=== PATIENT | male | born 1955 | race Two or more races ===

== ENCOUNTER 2019-04-05 08:02 | Emergency (ER) | payer MEDICAID ==
[~2019-04-05] VITALS: Ht 160 cm; Wt 48.0 kg
[2019-04-05] MEDS ORDERED: ANTIVIRALS (08:07)
[2019-04-05] MEDS ORDERED: ALBUTEROL (0.083%) 2.5MG/3ML NEB HHN STA (08:23)
[2019-04-05] MEDS ORDERED: SODIUM CHLORIDE 0.9% 1,000 ML IV ONE (08:23)
[2019-04-05 08:55] LABS: BASOPHILS % 0.3 % (0.0-2.0); EOSINOPHILS % 0.4 % (0.0-5.0); HEMATOCRIT. 35.7 % (42.0-52.0); HEMOGLOBIN. 12.3 g/dL (14.0-18.0); LYMPHOCYTES % 10.3 % (20.0-50.0); MEAN CORPUSCULAR HEMOGLOBIN 32.7 pg (28.0-32.0); MEAN CORPUSCULAR VOLUME 94.8 fL (80.0-94.0); MEAN PLATELET VOLUME 7.5 fl (7.4-10.4); MONOCYTES % 10.4 % (2.0-8.0); NEUTROPHILS % 78.6 % (40.0-76.0); PLATELET 197 x1000/uL (130-400); RED BLOOD CELL COUNT 3.77 mill/uL (4.7-6.1); RED CELL DISTRIBUTION WIDTH 13.4 % (11.6-14.6)
[2019-04-05 08:57] LABS: CHLORIDE 101 mEq/L (98-107)
[2019-04-05 08:59] LABS: PROTHROMBIN TIME 10.5 sec (9.6-11.0)
[2019-04-05 10:28] VITALS: BP 155/62
== END 2019-04-05 10:42 | disposition home or self-care (01) ==
LOC: ER 08:02
DX: B34.9 Viral infection, unspecified (principal)
CPT/HCPCS: 36415; 71045; 80053; 85025; 85610; 87804; 94640; 99284; J7030; J7611; Z7610

== ENCOUNTER 2022-05-12 10:59 | Emergency (ER) | payer MEDICARE, MEDICAID ==
[~2022-05-12] VITALS: Ht 162.6 cm; Wt 50.0 kg
[~2022-05-12 10:59] MED LIST: ANTIVIRALS
[2022-05-12 16:06] VITALS: BP 142/86
== END 2022-05-12 16:08 | disposition home or self-care (01) ==
LOC: ER 11:44
DX: U07.1 COVID-19 (principal)
CPT/HCPCS: 71045; 87426; 87804; 99284; C9803